=== PATIENT | female | born 1985 | race Caucasian/White ===

== ENCOUNTER 2017-03-29 07:12 | Emergency (ER) | payer OTHER ==
[~2017-03-29] VITALS: Ht 157.5 cm; Wt 76.7 kg
[2017-03-29 07:26] VITALS: BP 117/65
--- NOTE | 2017-03-29 07:33 | NUR ---
Patient ambulated to bed 3. RN evaluating patient at bedside.
--- NOTE | 2017-03-29 07:35 | NUR ---
31F BIB FRIEND C/O RT KNEE PAIN, STINGING, NON-RADIATING, 9/10 X THIS MORNING; SMALL BRUISE NOTED TO RT KNEE; PT STATES BRUISE UNRELATED TO PAIN FEELING AT THIS TIME; PT STATES " IM A [employer] AND I HIT MY KNEE ON THE DOWNING WHEN CLEANING, BUT THAT'S NOT RELATED TO WHY IT HURTS"; PT DENIES TRAUMA OR INURY TO RT KNEE AT THIS TIME; RT CAP REFILL < 3 SECONDS, RT PEDAL PULSE PAPLABLE, NO LOSS OF SENSATION OR ROM TO RT KNEE AT THIS TIME; NO SWELLING NOTED TO RT KNEE AT THIS TIME; PT A&OX4, PERRLA, BL LUNG SOUNDS CLEAR, RR EVEN/UNLABORED, SKIN IS WARM/DRY/INTACT AT THIS TIME; PT DENIES N/V/D AT THIS TIME; PT RESTING IN BED W/ HOB ELEVATED AND IN LOWEST POSITION; POSTIONED FOR COMFORT; ER MD MADE AWARE OF STATUS. WILL CONTINUE TO MONITOR.
--- NOTE | 2017-03-29 07:45 | NUR ---
Dr. Victoria evaluating patient at bedside.
[2017-03-29 07:57] VITALS: BP 116/76
--- NOTE | 2017-03-29 07:57 | NUR ---
Patient discharged with v/s stable. Written and verbal after care instructions given and explained. Patient alert, oriented and verbalized understanding of instructions. Ambulatory with steady gait. All questions addressed prior to discharge. ID band removed. Patient advised to follow up with PMD. Rx of MOTRIN 600MG TAB given. Patient educated on indication of medication including possible reaction and side effects. Opportunity to ask questions provided and answered.
== END 2017-03-29 07:57 | disposition home or self-care (01) ==
LOC: MED 07:12
DX: S83.91XA Sprain of unspecified site of right knee, initial encounter (principal); X58.XXXA Exposure to other specified factors, initial encounter; Y93.89 Activity, other specified; Y92.89 Other specified places as the place of occurrence of the external cause; Y99.8 Other external cause status
CPT/HCPCS: 99283